=== PATIENT | male | born 2000 | race Caucasian/White ===

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

== ENCOUNTER 2021-08-31 19:04 | Emergency (ER) | payer OTHER, BC | END 2021-08-31 19:54 | disposition home or self-care (01) | LOC: ERS 19:04 | DX: S60.222A Contusion of left hand, initial encounter (principal); W22.8XXA Striking against or struck by other objects, initial encounter; Y92.69 Other specified industrial and construction area as the place of occurrence of the external cause ==

== ENCOUNTER 2023-06-09 18:19 | Emergency (ER) | payer BC ==
[2023-06-09 19:32] LABS: Influenza A by NAA DETECTED (NotDetected); Influenza B by NAA Not Detected (NotDetected); SARS-CoV-2 NAA Rapid Test Not Detected (NotDetected)
== END 2023-06-09 21:19 | disposition home or self-care (01) ==
LOC: ERS 18:19
DX: J10.1 Influenza due to other identified influenza virus with other respiratory manifestations (principal)
CPT/HCPCS: 71045

== ENCOUNTER 2025-03-24 22:33 | Emergency (ER) | payer BC ==
[2025-03-25] MEDS ORDERED: Ibuprofen 800 MG TAB ONE (01:18)
[2025-03-25] MEDS ORDERED: Lidocaine Viscous Sol 2% 15 ml UD Cup ONE (01:19)
[2025-03-25] MEDS ORDERED: Mag-Al 1200 mg/1200 mg/30 ML UDCUP ONE (01:19)
== END 2025-03-25 02:15 | disposition home or self-care (01) ==
LOC: ERS 22:33
DX: K12.0 Recurrent oral aphthae (principal)
CPT/HCPCS: 99282